=== PATIENT | female | born 1995 | race Asian ===

== ENCOUNTER 2018-03-15 03:42 | Emergency (ER) | payer OTHER ==
[~2018-03-15] VITALS: Ht 160 cm; Wt 65.0 kg
[2018-03-15 03:52] VITALS: TEMP 36.4; O2SAT 97; Ht 160 cm; Wt 65.0 kg
[2018-03-15 04:14] LABS: CREATININE 0.76 mg/dl (0.60-1.20)
[2018-03-15] MEDS ORDERED: POTASSIUM CHLORIDE 20 MEQ TABCR PO STA (05:28)
[2018-03-15] MEDS ORDERED: POTASSIUM CHLORIDE 10 MEQ TABCR ONE (05:41)
[2018-03-15 05:43] VITALS: BP 83/54; PULSE 88; O2SAT 99
--- NOTE | 2018-03-15 05:50 | EMERGENCY ROOM VISIT NOTE ---
History First contact with patient: 03:42 Chief Complaint: ALCOHOL OVERDOSE Stated Complaint: ALCOHOL Nursing Triage Summary: was drinking with a friend, patient admits to drinking "a lot"-friend states that she lost track of how much her friend was drinking and is not sure exactly how much was consumed per EMS-patient vomitted multiple times en route patient denies any medical problems and states that her only home medication is control History of Present Illness The patient is a 22 year old female who presents to the Emergency Room via EMS for evaluation of alcohol intoxication. The patient was drinking with a green party with a friend. She states she was drinking [place] and drank "a lot." She began vomiting while walking home and her friend became concerned and called EMS. The patient denies any drug use. History is limited secondary to patient's intoxicated state. Review of Systems Review of systems is limited secondary to patient's intoxicated state. Past Medical/Surgical History Medical Problems: (1) No significant active problems Social History Smoking Status: Never Smoker Alcohol Use: heavy Housing Status: lives with roommate Occupation Status: [employer] student Current/Historical Medications No Active Prescriptions or Reported Meds Physical Exam Vital Signs Date Time Temp Pulse Resp B/P (MAP) Pulse Ox O2 Delivery O2 Flow Rate FiO2 03/15/18 05:43 88 14 83/54 99 Room Air 03/15/18 04:21 83 14 111/86 100 Room Air 03/15/18 03:52 97 Room Air 03/15/18 03:52 36.4 80 14 97/62 98 Room Air 03/15/18 03:50 77 Physical Exam VITALS: Vitals are noted on the nurse's note and reviewed by myself. Vital signs stable. GENERAL: This is a 22-year-old female, lying prone in bed, appears to be visibly intoxicated, smells of ETOH. SKIN: The skin was without erythema, edema, or bruising. HEAD: Normocephalic atraumatic. EARS: External auditory canals clear. No hemotympanum. EYES: Pupils equal round and reactive to light and accommodation. NOSE: No deformities noted. MOUTH: No loose or chipped teeth. NECK: No cervical spine tenderness. HEART: Regular rate and rhythm without murmurs gallops or rubs. LUNGS: Clear to auscultation bilaterally without wheezes, rales or rhonchi. ABDOMEN: Soft, nontender. MUSCULOSKELETAL: Full range of motion throughout. Strength intact throughout. NEURO: Patient was alert and oriented to person place and time. Speech slurred. Gross sensation intact. Patient cooperative with examiner. Medical Decision & Procedures Laboratory Results 03/15/18 03:49 Test 03/15/18 03:49 Anion Gap 10.0 mmol/L (3-11) Est Creatinine Clear Calc Drug Dose 106.2 ml/min Estimated GFR () 130.0 Estimated GFR (Non- 112.1 BUN/Creatinine Ratio 12.7 (10-20) Calcium Level 8.0 mg/dl (8.5-10.1) Human Chorionic Gonadotropin, Qual NEG (NEG) Ethyl Alcohol mg/dL 216.0 mg/dl (0-3) Medications Administered Medications (Trade) Dose Ordered Sig/Najma Route Start Time Stop Time Status Last Admin Dose Admin Potassium Chloride (Klor-Con M10) 40 meq STK-MED ONCE .ROUTE 03/15/18 05:41 03/15/18 05:42 DC 03/15/18 05:42 40 MEQ Medical Decision Differential diagnosis includes alcohol intoxication, drug use, infection, hypoglycemia, head trauma, among others. The patient is a 22-year-old female who presents today for evaluation of probable alcohol intoxication. Labs revealed an alcohol of 216. Kidney function was found to be within normal limits. Potassium was low at 3.0 and patient was given oral potassium prior to discharge. Labs were otherwise unremarkable. There is no evidence of head trauma or infection on exam. The patient was placed on the cafeteria monitor and placed in the prone position. They were monitored for an appropriate amount of time and when they were more sober, they were reassessed and discharged home with a sober friend. The patient was advised not to drink anymore alcohol today and to follow-up with [facility] for any further concerns. Medication Reconcilliation Current Medication List: was personally reviewed by me Blood Pressure Screening Patient's blood pressure: Normal blood pressure Impression Primary Impression: Alcoholic intoxication Departure Information Dispostion Home / Self-Care Condition GOOD Prescriptions No Active Prescriptions or Reported Meds Patient Instructions My [facility] Additional Instructions You were evaluated in emergency department for intoxication. This is a sign of Alcohol Abuse and should not be taken lightly. You had a blood alcohol level that was significantly elevated. Your potassium was slightly low today. Try to increase potassium in your diet. Over the next 24 hours keep well hydrated and eat light meals. Don't drink any more alcohol. This is important. Please discuss this visit with your Primary Care Provider, [facility] and/or your loved ones. Unless an exceptional circumstance, the Hospital DOES NOT contact anyone during your visit, nor is your Protected Medical Information released to anyone without your approval/request. This means we do not contact your Parents, the Police, [facility], etc. However, you will likely receive a bill from the Hospital and/or your Insurance company, which will usually be sent to the Primary Policy [place] (often one's Parents) If your incident was on campus, or if the Police were involved, they will often contact the University to make them aware of what happened. Often this will result in you being required to take Alcohol Education classes (ie BASICS class) . Please see information given to you at discharge regarding contact for this. If the Police were involved you may be cited for public intoxication. Please contact either [facility] Police or the [place] Police for further information. Call 911 or return to Emergency Department if you develop: Passing out, difficulty breathing, many episodes of vomiting, blood in vomit or stool, abdominal pain, fevers, or other severe symptoms. We are always here to help if you feel you need further evaluation or treatment. Problem Qualifiers Primary Impression: Alcoholic intoxication Complication of substance-induced condition: uncomplicated Qualified Codes: F10.920 - Alcohol use, unspecified with intoxication, uncomplicated
== END 2018-03-15 06:00 | disposition home or self-care (01) ==
LOC: C.EDA 03:45
DX: F10.129 Alcohol abuse with intoxication, unspecified (principal); Y90.7 Blood alcohol level of 200-239 mg/100 ml